=== PATIENT | male | born 1970 | race Asian ===

== ENCOUNTER 2018-01-28 10:39 | Day surgery (SDC) | payer OTHER ==
[2018-01-28] MEDS ORDERED: BUPIVACAINE MPF 0.75% 30 ML VIAL ONE (12:26)
[2018-01-28] MEDS ORDERED: ANESTHESIA TRAY IN PYXIS 1 EA TRAY MC ONE (12:40)
[2018-01-28] MEDS ORDERED: CEFAZOLIN 1 GM ONE (12:58)
[2018-01-28] MEDS ORDERED: HYDROCODONE/APAP 10/325MG 1 EA TABLET ONE (13:11)
== END 2018-01-28 23:59 | disposition home or self-care (01) ==
LOC: DS 10:39
PROVIDERS: ATTEND Student in an Organized Health Care Education/Training Program
DX: T84.84XA Pain due to internal orthopedic prosthetic devices, implants and grafts, initial encounter (principal); Y83.9 Surgical procedure, unspecified as the cause of abnormal reaction of the patient, or of later complication, without mention of misadventure at the time of the procedure; G89.18 Other acute postprocedural pain
CPT/HCPCS: 20680; A4217; A6253 ×2; A6402; J0690; J3490 ×2; Z7610 ×2